=== PATIENT | male | born 1970 | race Caucasian/White ===

== ENCOUNTER 2017-06-12 21:53 | Emergency (ER) | payer BC, MEDICAID, OTHER ==
[2017-06-12] MEDS ORDERED: Sodium Chloride 0.9% 10 ML Syringe FLUSH PRN (22:18)
[2017-06-12] MEDS ORDERED: Sodium Chloride 0.9% 1,000 ML IV SCH (22:45)
--- NOTE | 2017-06-13 01:35 | EDM.PDOC ---
ED HPI GENERAL MEDICAL PROBLEM - General Chief Complaint: Neuro Symptoms/Deficits Stated Complaint: MEDICAL Time Seen by Provider: 06/12/17 22:10 Source of Information: Reports: Patient History Limitations: Reports: No Limitations - History of Present Illness INITIAL COMMENTS - FREE TEXT/NARRATIVE: This man comes to the ER because he passed out several times. He remembers awakening but he doesn't remember being dizzy and having the sensation of being about to black out. He remembers at one time he walked outside and told a friend that he didn't feel good. He recalls feeling sort of warm and was see and nauseated. He's been on a low carbohydrate diet for the past 11 days. He has not eaten anything whatsoever today. He drank 2 beers. He never had any chest pain or palpitations - Related Data Allergies Allergy/AdvReac Type Severity Reaction Status Date / Time No Known Allergies Allergy Verified 06/12/17 21:56 Home Meds: Home Meds NK [No Known Home Meds] 06/12/17 [History] Past Medical History - Past Health History Medical/Surgical History: Denies Medical/Surgical History Neurological History: Reports: Other (See Below) Other Neuro History: possible stroke a year ago - Infectious Disease History Infectious Disease History: Reports: Chicken Pox Social & Family History - Tobacco Use Smoking Status *Q: Current Every Day Smoker Years of Tobacco use: 30 Packs/Tins Daily: 0.5 - Caffeine Use Caffeine Use: Reports: Coffee, Soda, Tea - Recreational Drug Use Recreational Drug Use: Yes Drug Use in Last 12 Months: Yes Recreational Drug Type: Reports: Marijuana/Hashish Recreational Drug Use Frequency: Daily Recreational Drug Last Use: t ED ROS GENERAL - Review of Systems Review Of Systems: See Below Constitutional: Reports: No Symptoms HEENT: Reports: No Symptoms Respiratory: Reports: No Symptoms Cardiovascular: Reports: No Symptoms Endocrine: Reports: No Symptoms GI/Abdominal: Reports: No Symptoms : Reports: No Symptoms Musculoskeletal: Reports: No Symptoms Skin: Reports: No Symptoms Neurological: Reports: Syncope Psychiatric: Reports: No Symptoms ED EXAM, NEURO - Physical Exam Exam: See Below Exam Limited By: No Limitations General Appearance: Alert, WD/WN, No Apparent Distress Eye Exam: Bilateral Eye: EOMI, Papilledema Ears: Normal External Exam, Normal TMs Nose: Normal Inspection Throat/Mouth: Normal Inspection, Normal Oropharynx Head Exam: Atraumatic Neck: Supple, Non-Tender Respiratory/Chest: No Respiratory Distress Cardiovascular: Normal Peripheral Pulses, No Murmur GI/Abdominal: Soft, Non-Tender Neurological: Alert, Normal Mood/Affect, CN II-XII Intact, Normal Reflexes, No Motor/Sensory Deficits Back Exam: Normal Inspection Extremities: Normal Inspection, No Pedal Edema Psychiatric: Normal Affect, Normal Mood Skin Exam: Warm, Diaphoretic Course - Vital Signs Last Recorded V/S: Last Vital Signs Temp 36.2 C 06/12/17 21:58 Pulse 74 06/12/17 22:49 Resp 16 06/12/17 22:49 BP 111/74 06/12/17 22:49 Pulse Ox 96 06/12/17 22:49 Orthostatic Blood Pressure [ 127/77 Standing] Orthostatic Blood Pressure [ 125/78 Sitting] Orthostatic Blood Pressure [ 114/74 Supine] - Orders/Labs/Meds Orders: Active Orders 24 hr Category Date Time Status EKG Documentation Completion [RC] ASDIRECTED Care 06/12/17 22:18 Active EKG Documentation Completion [RC] ASDIRECTED Care 06/12/17 23:32 Active Orthostatic Vital Signs [RC] ASDIRECTED Care 06/12/17 23:44 Active Chest 1V Frontal [CR] Urgent Exams 06/12/17 22:17 Taken Saline Lock Insert [OM.PC] Urgent Oth 06/12/17 22:17 Ordered EKG 12 Lead [EK] Urgent Ther 06/12/17 22:17 Ordered EKG 12 Lead [EK] Urgent Ther 06/12/17 23:32 Ordered Labs: Laboratory Tests 06/12/17 06/12/17 06/12/17 Range/Units 22:17 22:49 22:49 WBC 12.5 H (4.5-11.0) K/uL RBC 5.05 (4.30-5.90) M/uL Hgb 15.5 H (12.0-15.0) g/dL Hct 45.4 (40.0-54.0) % MCV 90 (80-98) fL MCH 31 (27-31) pg MCHC 34 (32-36) % Plt Count 174 (150-400) K/uL Neut % (Auto) 79 H (36-66) % Lymph % (Auto) 14 L (24-44) % [place] % (Auto) 7 H (2-6) % Eos % (Auto) 0 L (2-4) % Baso % (Auto) 1 (0-1) % Sodium 138 L (140-148) mmol/L Potassium 3.4 L (3.6-5.2) mmol/L Chloride 103 (100-108) mmol/L Carbon Dioxide 23 (21-32) mmol/L Anion Gap 15.4 H (5.0-14.0) mmol/L BUN 18 (7-18) mg/dL Creatinine 1.1 (0.8-1.3) mg/dL Est Cr Clr Drug Dosing 74.11 mL/min Estimated GFR (MDRD) > 60 (>60) Glucose 113 H (74-106) mg/dL Calcium 8.5 (8.5-10.1) mg/dL Total Bilirubin 0.5 (0.2-1.0) mg/dL AST 20 (15-37) U/L ALT 28 (12-78) U/L Alkaline Phosphatase 66 (46-116) U/L Troponin I < 0.017 (0.000-0.056) ng/mL Total Protein 7.1 (6.4-8.2) g/dL Albumin 3.8 (3.4-5.0) g/dL Globulin 3.3 (2.3-3.5) g/dL Albumin/Globulin Ratio 1.2 (1.2-2.2) Urine Color Urine Appearance Urine pH (4.5-8.0) Ur Specific [place] (1.008-1.030) Urine Protein (NEGATIVE) mg/dL Urine Glucose (UA) (NEGATIVE) mg/dL Urine Ketones (NEGATIVE) mg/dL Urine Occult Blood (NEGATIVE) Urine Nitrite (NEGAITVE) Urine Bilirubin (NEGATIVE) Urine Urobilinogen (NORMAL) mg/dL Ur Leukocyte Esterase (NEGATIVE) Urine RBC (0-5) Urine WBC (0-5) Ur Epithelial Cells Amorphous Sediment Urine Bacteria Urine Mucus Urine Opiates Screen (NEGATIVE) Ur Oxycodone Screen (NEGATIVE) Urine Methadone Screen (NEGATIVE) Ur Propoxyphene Screen (NEGATIVE) Ur Barbiturates Screen (NEGATIVE) Ur Tricyclics Screen (NEGATIVE) Ur Phencyclidine Scrn (NEGATIVE) Ur Amphetamine Screen (NEGATIVE) U Methamphetamines Scrn (NEGATIVE) Urine MDMA Screen (NEGATIVE) U Benzodiazepines Scrn (NEGATIVE) U Cocaine Metab Screen (NEGATIVE) U Marijuana (THC) Screen (NEGATIVE) Ethyl Alcohol 4 mg/dL 06/12/17 06/12/17 06/13/17 Range/Units 23:56 23:56 00:55 WBC (4.5-11.0) K/uL RBC (4.30-5.90) M/uL Hgb (12.0-15.0) g/dL Hct (40.0-54.0) % MCV (80-98) fL MCH (27-31) pg MCHC (32-36) % Plt Count (150-400) K/uL Neut % (Auto) (36-66) % Lymph % (Auto) (24-44) % [place] % (Auto) (2-6) % Eos % (Auto) (2-4) % Baso % (Auto) (0-1) % Sodium (140-148) mmol/L Potassium (3.6-5.2) mmol/L Chloride (100-108) mmol/L Carbon Dioxide (21-32) mmol/L Anion Gap (5.0-14.0) mmol/L BUN (7-18) mg/dL Creatinine (0.8-1.3) mg/dL Est Cr Clr Drug Dosing mL/min Estimated GFR (MDRD) (>60) Glucose (74-106) mg/dL Calcium (8.5-10.1) mg/dL Total Bilirubin (0.2-1.0) mg/dL AST (15-37) U/L ALT (12-78) U/L Alkaline Phosphatase (46-116) U/L Troponin I < 0.017 (0.000-0.056) ng/mL Total Protein (6.4-8.2) g/dL Albumin (3.4-5.0) g/dL Globulin (2.3-3.5) g/dL Albumin/Globulin Ratio (1.2-2.2) Urine Color Yellow Urine Appearance Clear Urine pH 5.0 (4.5-8.0) Ur Specific [place] 1.020 (1.008-1.030) Urine Protein Negative (NEGATIVE) mg/dL Urine Glucose (UA) Normal (NEGATIVE) mg/dL Urine Ketones 15 H (NEGATIVE) mg/dL Urine Occult Blood Negative (NEGATIVE) Urine Nitrite Negative (NEGAITVE) Urine Bilirubin Negative (NEGATIVE) Urine Urobilinogen Normal (NORMAL) mg/dL Ur Leukocyte Esterase Negative (NEGATIVE) Urine RBC 0-5 (0-5) Urine WBC 0-5 (0-5) Ur Epithelial Cells Few Amorphous Sediment Not seen Urine Bacteria Few Urine Mucus Moderate Urine Opiates Screen Negative (NEGATIVE) Ur Oxycodone Screen Negative (NEGATIVE) Urine Methadone Screen Negative (NEGATIVE) Ur Propoxyphene Screen Negative (NEGATIVE) Ur Barbiturates Screen Negative (NEGATIVE) Ur Tricyclics Screen Negative (NEGATIVE) Ur Phencyclidine Scrn Negative (NEGATIVE) Ur Amphetamine Screen Negative (NEGATIVE) U Methamphetamines Scrn Negative (NEGATIVE) Urine MDMA Screen Negative (NEGATIVE) U Benzodiazepines Scrn Negative (NEGATIVE) U Cocaine Metab Screen Negative (NEGATIVE) U Marijuana (THC) Screen Positive H (NEGATIVE) Ethyl Alcohol mg/dL Meds: Medications Discontinued Medications Generic Name Dose Route Start Last Admin Trade Name Freq PRN Reason Stop Dose Admin Sodium Chloride 1,000 mls @ 999 mls/hr 06/12/17 22:45 06/12/17 22:46 Normal Saline IV 999 mls/hr ASDIRECTED DG Administration Sodium Chloride 10 ml 06/12/17 22:18 06/12/17 22:22 Saline Flush FLUSH 10 ml ASDIRECTED PRN Administration Keep Vein Open - Re-Assessments/Exams Free Text/Narrative Re-Assessment/Exam: 06/13/17 06:57 2 EKGs were done the first showed sinus rhythm at 85 bpm there is left atrial enlargement some left axis deviation possible right bundle branch block there is some very slight ST elevation in V1 the 2 probably early depolarization there is no reciprocal changes. A second EKG about an hour and a half later shows sinus rhythm at 73 bpm there is still some slight ST elevation in V2. I discussed these EKGs with our hospitalist Dr. Fernández and he agreed that these are pretty unremarkable EKGs. Monitor shows no ectopy. An IV was established he was given a total of 2 L of IV normal saline. A fingerstick blood sugar was normal. Labs were drawn including CBC cams and troponin which were all negative. After approximately 2-1/2 hours a repeat troponin was drawn which was also negative. At time of discharge the patient is feeling quite well. Despite the normal blood sugar I think the most likely explanation is some hypoglycemia related to his poor caloric intake followed by alcohol ingestion. Departure - Departure Time of Disposition: 01:32 Disposition: Home, Self-Care 01 Condition: Fair Clinical Impression: Near syncope - Discharge Information Instructions: Near-Syncope, [id number] Referrals: PCP,None [Primary Care Provider] - Forms: ED Department Discharge Additional Instructions: The episodes you had today were most likely related to poor caloric intake may be a little bit of dehydration and then alcohol consumption. The blood sugar here in the emergency department was okay but I think it may have dropped earlier to a level that causes you to nearly pass out. Tomorrow, that is, later today, just rest indoors. Eat a good well balanced diet and drink plenty of liquids. Lay off alcohol for a couple of days. Generally 2 drinks a day is considered okay just for future reference. Plan to see your doctor within the next few days and you may return to the ER at any time if needed - My Orders Last 24 Hours: My Active Orders 06/12/17 22:17 Chest 1V Frontal [CR] Urgent Saline Lock Insert [OM.PC] Urgent EKG 12 Lead [EK] Urgent 06/12/17 22:18 EKG Documentation Completion [RC] ASDIRECTED 06/12/17 23:32 EKG Documentation Completion [RC] ASDIRECTED EKG 12 Lead [EK] Urgent 06/12/17 23:44 Orthostatic Vital Signs [RC] ASDIRECTED - Assessment/Plan Last 24 Hours: My Active Orders 06/12/17 22:17 Chest 1V Frontal [CR] Urgent Saline Lock Insert [OM.PC] Urgent EKG 12 Lead [EK] Urgent 06/12/17 22:18 EKG Documentation Completion [RC] ASDIRECTED 06/12/17 23:32 EKG Documentation Completion [RC] ASDIRECTED EKG 12 Lead [EK] Urgent 06/12/17 23:44 Orthostatic Vital Signs [RC] ASDIRECTED
--- NOTE | 2017-06-13 09:03 | CR ---
Chest 1V Frontal HISTORY: Pain COMPARISON: None FINDINGS: Cardiac size and pulmonary vessels normal. No focal infiltrates or effusions. No acute therese estive change.
== END 2017-06-13 01:46 | disposition home or self-care (01) ==
LOC: JP.ED 21:53
DX: R55 Syncope and collapse (principal); F17.210 Nicotine dependence, cigarettes, uncomplicated
CPT/HCPCS: 36415; 71010; 80053; 80305; 81001; 82962; 84484; 85025; 93005; 96360; 99284; G0480; J7040; J7050